=== PATIENT | female | born 1955 | race Caucasian/White ===

== ENCOUNTER 2018-01-05 22:57 | Emergency (ER) | payer OTHER ==
[2018-01-05] MEDS: SOD CHLORIDE 0.9% 1,000 ML IV (23:35)
[2018-01-05] MEDS: KETOROLAC 15 MG INJ IV (23:41)
[2018-01-05] MEDS: ONDANSETRON 4 MG INJ IV (23:41)
[2018-01-05 23:43] LABS: ADD MAN DIFF? NO
[2018-01-05 23:45] LABS: BASOPHIL # 0.1 10^3/ul (0.0-0.1); BASOPHILS % 0.6 % (0.0-2.0); EOSINOPHILS # 0.2 10^3/ul (0.0-0.5); EOSINOPHILS % 1.9 % (0.0-7.0); HEMATOCRIT 35.8 % (37.0-47.0); HEMOGLOBIN 11.9 g/dl (12.0-16.0); LYMPHOCYTES # 3.2 10^3/ul (0.8-2.9); LYMPHOCYTES % 37.5 % (15.0-51.0); MEAN CORPUSCULAR HEMOGLOBIN 30.9 pg (29.0-33.0); MEAN CORPUSCULAR HGB CONC 33.2 g/dl (32.0-37.0); MEAN PLATELET VOLUME 9.7 fl (7.4-10.4); MONOCYTE # 0.7 10^3/ul (0.3-0.9); MONOCYTES % 8.6 % (0.0-11.0); NEUTROPHIL # 4.4 10^3/ul (1.6-7.5); NEUTROPHILS % 51.2 % (39.0-77.0); PLATELET COUNT 259 10^3/UL (140-415); RED BLOOD COUNT 3.85 10^6/ul (4.20-5.40)
[2018-01-05 23:45] LABS: WHITE BLOOD COUNT 8.5 10^3/ul (4.8-10.8)
[2018-01-05 23:50] LABS: ADD UMIC YES; UR ASCORBIC ACID NEGATIVE (NEGATIVE); UR BILIRUBIN (Dip) NEGATIVE (NEGATIVE); UR BLOOD (Dip) 1+ mg/dL (NEGATIVE); UR CLARITY CLEAR (CLEAR); UR COLOR YELLOW (YELLOW); UR GLUCOSE (Dip) NEGATIVE (NEGATIVE); UR KETONES (Dip) NEGATIVE (NEGATIVE); UR LEUKOCYTE ESTERASE (Dip) 2+ Leu/ul (NEGATIVE); UR NITRITE (Dip) NEGATIVE (NEGATIVE); UR RBC 3 /HPF (0-5); UR SPECIFIC GRAVITY (Dip) 1.023 (1.003-1.030); UR TOTAL PROTEIN (Dip) NEGATIVE (NEGATIVE); UR UROBILINOGEN (Dip) NEGATIVE (NEGATIVE); UR WBC 15 /HPF (0-5)
[2018-01-06 00:07] LABS: ALANINE AMINOTRANSFERASE 28 IU/L (13-69); ALBUMIN 3.9 g/dl (3.3-4.9); ALBUMIN/GLOBULIN RATIO 1.14; ALKALINE PHOSPHATASE 68 IU/L (42-121); ANION GAP 14 (8-16); ASPARTATE AMINO TRANSFERASE 27 IU/L (15-46); BILIRUBIN,INDIRECT 0.1 mg/dl (0-1.1); BILIRUBIN,TOTAL 0.1 mg/dl (0.2-1.3); BLOOD UREA NITROGEN 23 mg/dl (7-20); CALCIUM 9.3 mg/dl (8.4-10.2); CARBON DIOXIDE 32 mmol/L (21-31); CHLORIDE 104 mmol/L (97-110); CREATININE 0.78 mg/dl (0.44-1.00); GLUCOSE 125 mg/dl (70-220); LIPASE 55 U/L (23-300); POTASSIUM 3.7 mmol/L (3.5-5.1); SODIUM 146 mmol/L (135-144); TOTAL PROTEIN 7.3 g/dl (6.1-8.1)
[2018-01-06] MEDS: CEFTRIAXONE 1 GM/50 ML (PMX) 50 ML IVPB (00:15)
== END 2018-01-06 02:27 | disposition home or self-care (01) ==
LOC: E/R 01-06 02:27
DX: N39.0 Urinary tract infection, site not specified (principal); E86.0 Dehydration; I10 Essential (primary) hypertension; E66.9 Obesity, unspecified; Z68.31 Body mass index [BMI] 31.0-31.9, adult; Z79.82 Long term (current) use of aspirin; Z85.3 Personal history of malignant neoplasm of breast
CPT/HCPCS: 36415; 74176; 80053; 81001; 83690; 85025; 96374; 96375; 99285-25

== ENCOUNTER 2018-05-08 11:07 | Emergency (ER) | payer OTHER ==
[2018-05-08] MEDS: HYDROCODONE/APAP (5/325) TAB PO (12:06)
[2018-05-08 12:08] LABS: ADD MAN DIFF? NO
[2018-05-08 12:11] LABS: WHITE BLOOD COUNT 9.3 10^3/ul (4.8-10.8)
[2018-05-08 12:11] LABS: BASOPHILS % 0.4 % (0.0-2.0); EOSINOPHILS # 0.1 10^3/ul (0.0-0.5); EOSINOPHILS % 1.4 % (0.0-7.0); HEMATOCRIT 39.2 % (37.0-47.0); HEMOGLOBIN 12.8 g/dl (12.0-16.0); LYMPHOCYTES # 2.1 10^3/ul (0.8-2.9); LYMPHOCYTES % 22.4 % (15.0-51.0); MEAN CORPUSCULAR HEMOGLOBIN 30.8 pg (29.0-33.0); MEAN CORPUSCULAR HGB CONC 32.7 g/dl (32.0-37.0); MEAN CORPUSCULAR VOLUME 94.5 fl (82.0-101.0); MEAN PLATELET VOLUME 9.7 fl (7.4-10.4); MONOCYTE # 0.7 10^3/ul (0.3-0.9); MONOCYTES % 7.4 % (0.0-11.0); NEUTROPHIL # 6.4 10^3/ul (1.6-7.5); NEUTROPHILS % 68.1 % (39.0-77.0); PLATELET COUNT 264 10^3/UL (140-415); RED BLOOD COUNT 4.15 10^6/ul (4.20-5.40); RED CELL DISTRIBUTION WIDTH 12.8 % (11.5-14.5)
[2018-05-08 12:27] LABS: ADD UMIC YES; UR ASCORBIC ACID NEGATIVE (NEGATIVE); UR BILIRUBIN (Dip) NEGATIVE (NEGATIVE); UR BLOOD (Dip) NEGATIVE (NEGATIVE); UR CLARITY SLIGHTLY CLOUDY (CLEAR); UR COLOR STRAW (YELLOW); UR GLUCOSE (Dip) NEGATIVE (NEGATIVE); UR KETONES (Dip) NEGATIVE (NEGATIVE); UR LEUKOCYTE ESTERASE (Dip) 3+ Leu/ul (NEGATIVE); UR NITRITE (Dip) NEGATIVE (NEGATIVE); UR RBC 0 /HPF (0-5); UR SPECIFIC GRAVITY (Dip) 1.003 (1.003-1.030); UR TOTAL PROTEIN (Dip) NEGATIVE (NEGATIVE); UR UROBILINOGEN (Dip) NEGATIVE (NEGATIVE); UR WBC > 182 /HPF (0-5)
[2018-05-08 12:31] LABS: ALANINE AMINOTRANSFERASE 32 IU/L (13-69); ALBUMIN/GLOBULIN RATIO 1.05; ALKALINE PHOSPHATASE 76 IU/L (42-121); ANION GAP 12 (8-16); ASPARTATE AMINO TRANSFERASE 31 IU/L (15-46); BILIRUBIN,INDIRECT 0.3 mg/dl (0-1.1); BILIRUBIN,TOTAL 0.3 mg/dl (0.2-1.3); BLOOD UREA NITROGEN 11 mg/dl (7-20); CALCIUM 9.4 mg/dl (8.4-10.2); CARBON DIOXIDE 29 mmol/L (21-31); CHLORIDE 103 mmol/L (97-110); CREATININE 0.61 mg/dl (0.44-1.00); GLUCOSE 88 mg/dl (70-220); LIPASE 40 U/L (23-300); POTASSIUM 4.1 mmol/L (3.5-5.1); SODIUM 140 mmol/L (135-144); TOTAL PROTEIN 7.8 g/dl (6.1-8.1)
== END 2018-05-08 13:30 | disposition home or self-care (01) ==
LOC: E/R 11:07
DX: N39.0 Urinary tract infection, site not specified (principal); I10 Essential (primary) hypertension; R51 Headache; Z79.82 Long term (current) use of aspirin
CPT/HCPCS: 36415; 70450; 80053; 81001; 83690; 85025; 99284-25

== ENCOUNTER 2018-05-15 23:44 | Observation (INO) | payer OTHER ==
[2018-05-16 02:16] LABS: ADD MAN DIFF? NO
[2018-05-16 02:17] LABS: WHITE BLOOD COUNT 9.8 10^3/ul (4.8-10.8)
[2018-05-16 02:17] LABS: BASOPHIL # 0.1 10^3/ul (0.0-0.1); BASOPHILS % 0.5 % (0.0-2.0); EOSINOPHILS # 0.2 10^3/ul (0.0-0.5); LYMPHOCYTES # 3.4 10^3/ul (0.8-2.9); LYMPHOCYTES % 35.1 % (15.0-51.0); MEAN CORPUSCULAR HEMOGLOBIN 31.4 pg (29.0-33.0); MEAN CORPUSCULAR HGB CONC 33.3 g/dl (32.0-37.0); MEAN CORPUSCULAR VOLUME 94.2 fl (82.0-101.0); MEAN PLATELET VOLUME 9.7 fl (7.4-10.4); MONOCYTE # 0.7 10^3/ul (0.3-0.9); MONOCYTES % 7.6 % (0.0-11.0); NEUTROPHIL # 5.3 10^3/ul (1.6-7.5); NEUTROPHILS % 54.5 % (39.0-77.0); PLATELET COUNT 264 10^3/UL (140-415); RED BLOOD COUNT 3.82 10^6/ul (4.20-5.40); RED CELL DISTRIBUTION WIDTH 12.8 % (11.5-14.5)
[2018-05-16] MEDS: morphine 4 MG/ML VIAL IV (02:37)
[2018-05-16] MEDS: ONDANSETRON 4 MG INJ IV (02:37)
[2018-05-16 02:43] LABS: ALANINE AMINOTRANSFERASE 22 IU/L (13-69); ALBUMIN 3.9 g/dl (3.3-4.9); ALBUMIN/GLOBULIN RATIO 1.08; ALKALINE PHOSPHATASE 76 IU/L (42-121); ANION GAP 13 (8-16); ASPARTATE AMINO TRANSFERASE 28 IU/L (15-46); BILIRUBIN,INDIRECT 0.4 mg/dl (0-1.1); BILIRUBIN,TOTAL 0.4 mg/dl (0.2-1.3); BLOOD UREA NITROGEN 20 mg/dl (7-20); CALCIUM 8.9 mg/dl (8.4-10.2); CARBON DIOXIDE 27 mmol/L (21-31); CHLORIDE 106 mmol/L (97-110); CREATININE 0.56 mg/dl (0.44-1.00); GLUCOSE 104 mg/dl (70-220); SODIUM 142 mmol/L (135-144); TOTAL PROTEIN 7.5 g/dl (6.1-8.1)
[2018-05-16 02:55] LABS: B-TYPE NATRIURETIC PEPTIDE 81 PG/ML (0-125); TROPONIN-I < 0.012 ng/ml (0.000-0.120)
[2018-05-16 05:06] LABS: TROPONIN-I < 0.012 ng/ml (0.000-0.120)
[2018-05-16] MEDS ORDERED: NACL 0.9% 3 ML SYG IV (09:00)
[2018-05-16] MEDS ORDERED: ONDANSETRON 4 MG INJ IV (09:00)
[2018-05-16] MEDS ORDERED: ACETAMINOPHEN 325 MG TAB PO (09:00)
[2018-05-16] MEDS ORDERED: BISACODYL (EC) 5 MG TAB PO (09:00)
[2018-05-16] MEDS ORDERED: NITROGLYCERIN (SL) 0.4 MG TAB SL (09:00)
[2018-05-16] MEDS ORDERED: DOCUSATE SODIUM 100 MG CAP PO (09:00)
[2018-05-16] MEDS ORDERED: morphine 2 MG INJ IV (09:00)
[2018-05-16 09:25] LABS: CREATINE KINASE 29 IU/L (23-200)
[2018-05-16 09:36] LABS: CK INDEX 1.6; CK-MB 0.45 ng/ml (0.0-2.4); TROPONIN-I < 0.012 ng/ml (0.000-0.120)
[2018-05-16] MEDS: FAMOTIDINE 20 MG TAB PO (10:30)
[2018-05-16] MEDS: ASPIRIN 81 MG TAB PO (10:30)
[2018-05-16 10:56] LABS: WHITE BLOOD COUNT 6.8 10^3/ul (4.8-10.8)
[2018-05-16 10:56] LABS: ADD MAN DIFF? NO; BASOPHILS % 0.6 % (0.0-2.0); EOSINOPHILS # 0.2 10^3/ul (0.0-0.5); EOSINOPHILS % 2.3 % (0.0-7.0); HEMOGLOBIN 11.5 g/dl (12.0-16.0); LYMPHOCYTES % 43.5 % (15.0-51.0); MEAN CORPUSCULAR HEMOGLOBIN 31.2 pg (29.0-33.0); MEAN CORPUSCULAR HGB CONC 32.9 g/dl (32.0-37.0); MEAN CORPUSCULAR VOLUME 94.9 fl (82.0-101.0); MEAN PLATELET VOLUME 9.8 fl (7.4-10.4); MONOCYTE # 0.6 10^3/ul (0.3-0.9); MONOCYTES % 8.9 % (0.0-11.0); NEUTROPHILS % 44.6 % (39.0-77.0); PLATELET COUNT 261 10^3/UL (140-415); RED BLOOD COUNT 3.69 10^6/ul (4.20-5.40); RED CELL DISTRIBUTION WIDTH 12.8 % (11.5-14.5)
[2018-05-16 11:04] LABS: ALANINE AMINOTRANSFERASE 23 IU/L (13-69); ALBUMIN 3.7 g/dl (3.3-4.9); ALBUMIN/GLOBULIN RATIO 1.02; ALKALINE PHOSPHATASE 72 IU/L (42-121); ANION GAP 13 (8-16); ASPARTATE AMINO TRANSFERASE 27 IU/L (15-46); BILIRUBIN,INDIRECT 0.3 mg/dl (0-1.1); BILIRUBIN,TOTAL 0.3 mg/dl (0.2-1.3); BLOOD UREA NITROGEN 17 mg/dl (7-20); CALCIUM 8.8 mg/dl (8.4-10.2); CARBON DIOXIDE 28 mmol/L (21-31); CHLORIDE 104 mmol/L (97-110); CHOLESTEROL 211 mg/dl (100-200); CREATININE 0.57 mg/dl (0.44-1.00); GLUCOSE 107 mg/dl (70-220); HDL CHOLESTEROL 35 mg/dl (35-98); LDL CHOLESTEROL,CALCULATED 144 mg/dl; MAGNESIUM 1.9 mg/dl (1.7-2.5); POTASSIUM 3.9 mmol/L (3.5-5.1); SODIUM 141 mmol/L (135-144); TOTAL PROTEIN 7.3 g/dl (6.1-8.1); TRIGLYCERIDES 162 mg/dl (0-149)
[2018-05-16 11:10] LABS: HEMOGLOBIN A1C 5.7 % (0-5.9)
[2018-05-16] MEDS: LIDOCAINE/MYLANTA 40 ML BTL PO (11:45)
[2018-05-16] MEDS: CALCIUM/VITAMIN D (500/200) TAB PO ×2 (11:51→20:10)
[2018-05-16 14:19] LABS: FREE T4 (FREE THYROXINE) 1.06 ng/dl (0.78-2.44)
[2018-05-16 14:51] LABS: CREATINE KINASE 27 IU/L (23-200)
[2018-05-16 15:04] LABS: CK INDEX 1.2; CK-MB 0.32 ng/ml (0.0-2.4); TROPONIN-I < 0.012 ng/ml (0.000-0.120)
[2018-05-16] MEDS ORDERED: morphine LIQ (10 MG/5 ML) CUP PO (18:30)
[2018-05-16] MEDS: ATORVASTATIN 40 MG TAB PO (20:09)
[2018-05-17] MEDS: ASPIRIN 81 MG TAB PO (08:56)
[2018-05-17] MEDS: FAMOTIDINE 20 MG TAB PO (08:56)
[2018-05-17] MEDS: CALCIUM/VITAMIN D (500/200) TAB PO (08:56)
== END 2018-05-17 14:16 | disposition home or self-care (01) ==
LOC: E/R 23:44 → 6WM 05-16 04:17
DX: R07.89 Other chest pain (principal); I10 Essential (primary) hypertension; E78.5 Hyperlipidemia, unspecified; E03.9 Hypothyroidism, unspecified; K21.9 Gastro-esophageal reflux disease without esophagitis; Z85.3 Personal history of malignant neoplasm of breast; Z92.21 Personal history of antineoplastic chemotherapy
CPT/HCPCS: 36415; 71045; 80053; 80061; 82550; 82553; 83036; 83735; 83880; 84439; 84443; 84484; 85025; 93005; 93306; 96374; 96375; 99285-25; G0378

== ENCOUNTER 2019-01-03 21:21 | Emergency (ER) | payer SELFPAY, OTHER | END 2019-01-04 02:45 | disposition left against medical advice (07) | LOC: E/R 21:21 | DX: Z53.21 Procedure and treatment not carried out due to patient leaving prior to being seen by health care provider (principal) | CPT/HCPCS: 93005 ==

== ENCOUNTER 2019-02-05 11:57 | Emergency (ER) | payer OTHER ==
[2019-02-05 13:51] LABS: ADD UMIC YES; UR ASCORBIC ACID 40 mg/dL (NEGATIVE); UR BACTERIA MODERATE /HPF (NONE SEEN); UR BILIRUBIN (Dip) NEGATIVE (NEGATIVE); UR BLOOD (Dip) NEGATIVE (NEGATIVE); UR CLARITY SLIGHTLY CLOUDY (CLEAR); UR COLOR AMBER (YELLOW); UR GLUCOSE (Dip) NEGATIVE (NEGATIVE); UR KETONES (Dip) NEGATIVE (NEGATIVE); UR LEUKOCYTE ESTERASE (Dip) NEGATIVE Leu/ul (NEGATIVE); UR MUCUS FEW /HPF (NONE SEEN); UR NITRITE (Dip) POSITIVE (NEGATIVE); UR RBC 3 /HPF (0-5); UR SQUAMOUS EPITHELIAL CELL FEW /HPF (FEW); UR TOTAL PROTEIN (Dip) NEGATIVE (NEGATIVE); UR UROBILINOGEN (Dip) 2+ mg/dL (NEGATIVE); UR WBC > 182 /HPF (0-5)
== END 2019-02-05 13:59 | disposition home or self-care (01) ==
LOC: FTE 13:59
DX: N39.0 Urinary tract infection, site not specified (principal); I10 Essential (primary) hypertension; Z79.82 Long term (current) use of aspirin; Z85.3 Personal history of malignant neoplasm of breast
CPT/HCPCS: 81001; 99283

== ENCOUNTER 2019-04-17 19:42 | Emergency (ER) | payer OTHER ==
[2019-04-17 20:22] LABS: URINE PH (Dip) POC 5.5 (5.0-8.5)
[2019-04-17 20:22] LABS: URINE BLOOD (Dip) POC 2+ (NEGATIVE); URINE GLUCOSE (Dip) POC Negative (NEGATIVE); URINE KETONES (Dip) POC Negative (NEGATIVE); URINE LEUKOCYTE EST (Dip) POC 2+ (NEGATIVE); URINE NITRITE (Dip) POC Negative (NEGATIVE); URINE TOTAL PROTEIN POC 2+ (NEGATIVE)
[2019-04-17] MEDS: ONDANSETRON (ODT) 4 MG TAB ODT (22:42)
[2019-04-17] MEDS: TRIMETHOPRIM/SULFAMETHOX (DS) TAB PO (22:58)
== END 2019-04-17 23:11 | disposition home or self-care (01) ==
LOC: E/R 19:42
DX: N39.0 Urinary tract infection, site not specified (principal); I10 Essential (primary) hypertension; Z79.82 Long term (current) use of aspirin; Z85.3 Personal history of malignant neoplasm of breast
CPT/HCPCS: 81003; 99283